=== PATIENT | female | born 1975 | race Caucasian/White ===

== ENCOUNTER 2018-08-12 19:05 | Emergency (ER) | payer MEDICAID ==
[~2018-08-12] VITALS: Wt 78.7 kg
[2018-08-12] MEDS ORDERED: SOD CHLORIDE 0.9% 1,000 ML IV STA (20:11)
[2018-08-12 22:43] VITALS: BP 116/59; PULSE 86; RESP 18
--- NOTE | 2018-08-14 06:28 | ERD ---
ER Documentation Chief Complaint Chief Complaint SOB+ flu sx x few weeks; worse since yesterday. 21 wks preg. AP no NVD HPI This is a very pleasant 42-year-old female, Sinhala-speaking, 4 para 3 roughly 21 weeks dated by last menstrual period. The patient indicates that for the past 2 weeks she has been having flulike symptoms of runny nose, productive cough, generalized weakness and tactile fever with no shaking or chills. She has not taken any medications prior to arrival. The patient does complain of mild abdominal cramping for the past several weeks. She is felt nauseous but has not experienced any nausea or diarrhea. The patient in triage stated she was short of breath however the patient indicates myself that she denies shortness of breath but does complain of mild dyspnea and cough. She denies any recent travel. She denies any cramping of her bilateral lower extremities or swelling. She denies a headache. She has no neck pain. She denies any vaginal bleeding and no frequency urgency or dysuria ROS All systems reviewed and are negative except as per history of present illness. Allergies Allergies: Coded Allergies: No Known Allergy (Unverified , 08/12/18) PMhx/Soc Medical and Surgical Hx: pt denies Medical Hx, pt denies Surgical Hx Hx Alcohol Use: No Hx Substance Use: No Hx Tobacco Use: No Smoking Status: Never smoker Physical Exam Vitals Vital Signs Date Temp Pulse Resp B/P (MAP) Pulse Ox O2 O2 Flow FiO2 Time Delivery Rate 08/12/18 98.5 86 18 116/59 98 Room Air 22:43 (78) 08/12/18 97.9 89 20 119/65 99 19:18 (83) Physical Exam Constitutional:Well-developed. Well-nourished. HEENT:Normocephalic. Atraumatic.Pupils were equal round reactive to light. Moist mucous membranes.No tonsillar exudates. Neck: No nuchal rigidity. No lymphadenopathy. No posterior cervical spine tenderness or step-offs. Respiratory: Not using accessory muscles of respiration.Lungs were clear to auscultation bilaterally. No rhonchi. No rales. Mild wheezing bilaterally. Cardiovascular: Regular rate regular rhythm.No murmurs. No rubs were appr eciated.S1, S2 normal. Distal pulses are palpable 2+ bilaterally. GI: Abdomen was gravid with no tenderness. Non Distended. No pulsatile abdominal masses or bruits. No rebound. No guarding. Bowel sounds were present and normal. Muscle skeletal: Full range of motion of both the upper and lower extremities bilaterally.Normal muscle tone.No assymetrical calf tenderness or swelling. Skin: No petechia, no purpura. No lesions on the palms or the soles of the feet. No maculopapular rash. NEURO: Patient was alert, awake, orientated x3.No facial droop. Gait observed and normal with no ataxia.Speech had regular rate and rhythm. No focal neurological deficits. Result Diagram: 08/12/18202508/12/182025 Results 24 hrs Laboratory Tests Test 08/12/18 20:26 White Blood Count 12.5 10^3/ul Red Blood Count 3.90 10^6/ul Hemoglobin 11.9 g/dl Hematocrit 34.3 % Mean Corpuscular Volume 87.9 fl Mean Corpuscular Hemoglobin 30.5 pg Mean Corpuscular Hemoglobin Concent 34.7 g/dl Red Cell Distribution Width 13.9 % Platelet Count 342 10^3/UL Mean Platelet Volume 8.9 fl Immature Granulocytes % 0.600 % Neutrophils % 76.2 % Lymphocytes % 15.6 % Monocytes % 6.0 % Eosinophils % 1.4 % Basophils % 0.2 % Nucleated Red Blood Cells % 0.0 /100WBC Immature Granulocytes # 0.070 10^3/ul Neutrophils # 9.6 10^3/ul Lymphocytes # 2.0 10^3/ul Monocytes # 0.8 10^3/ul Eosinophils # 0.2 10^3/ul Basophils # 0.0 10^3/ul Nucleated Red Blood Cells # 0.0 10^3/ul Prothrombin Time 12.9 Sec Prothrombin Time Ratio 1.0 INR International Normalized Ratio 0.96 Activated Partial Thromboplast Time 27.4 Sec Urine Color COLORLESS Urine Clarity CLEAR Urine pH 8.0 Urine Specific [place] 1.008 Urine Ketones NEGATIVE mg/dL Urine Nitrite NEGATIVE mg/dL Urine Bilirubin NEGATIVE mg/dL Urine Urobilinogen NEGATIVE mg/dL Urine Leukocyte Esterase NEGATIVE [place] Urine Hemoglobin NEGATIVE mg/dL Urine Glucose NEGATIVE mg/dL Urine Total Protein NEGATIVE mg/dl Sodium Level 139 mmol/L Potassium Level 3.9 mmol/L Chloride Level 109 mmol/L Carbon Dioxide Level 22 mmol/L Anion Gap 8 Blood Urea Nitrogen 9 mg/dl Creatinine 0.46 mg/dl Est Glomerular Filtrat Rate mL/min > 60 mL/min Glucose Level 95 mg/dl Calcium Level 8.9 mg/dl Total Bilirubin 0.3 mg/dl Direct Bilirubin 0.00 mg/dl Indirect Bilirubin 0.3 mg/dl Aspartate Amino Transf (AST/SGOT) 24 IU/L Alanine Aminotransferase (ALT/SGPT) 22 IU/L Alkaline Phosphatase 78 IU/L B-Type Natriuretic Peptide 35 PG/ML Total Protein 7.4 g/dl Albumin 4.0 g/dl Globulin 3.40 g/dl Albumin/Globulin Ratio 1.17 Beta HCG, Quantitative 88245.0 mIU/ml Current Medications Medications Dose Sig/Pérez Start Time Status Last (Trade) Ordered Route PRN Stop Time Admin Dose Reason Admin Sodium 1,000 ml @ Q1H STAT 08/12/18 DC 08/12/18 Chloride 1,000 mls/hr IV 20:11 21:38 08/12/18 21:10 Procedures/MDM The patient presented to the emergency department with dyspnea 21 weeks . My differential diagnosis included but was not limited to upper airway obstruction, CHF, pulmonary embolism, cardiac ischemia, pneumonia, pneumothorax, anemia, drug overdose, pulmonary edema, COPD or asthma. The patient had IV ac cess established by nursing staff. She was given a liter bolus of normal saline. Patient did have mild wheezing but the patient was refusing a nebulizer treatment. The patient did states she wanted a chest radiograph and her abdomen was shielded. This was reviewed by myself the radiologist and there is no evidence of pneumonia or infiltrates. The patient's wheezing resolved however had not received any medications in the emergency department. I indicated to the patient that this was likely a viral etiology my clinical suspicion was low for pulmonary embolism. There is mild leukocytosis expected with her . There is no severe electrolyte abnormalities. The patient also been complaining of mild abdominal cramping and therefore I did feel is necessary to obtain an ultrasound of the pelvis which was reviewed by the radiologist and indicated following: Single live intrauterine gestation of 21 weeks 1 day by ultrasound criteria. The patient was offered to go to labor and delivery daily for monitoring however the patient stated she felt comfortable being discharged home. Her main concern was pneumonia and after I indicated the patient I did not feel her symptoms were bacterial etiology she felt comfortable being discharged home and following up with her [facility]. She was instructed that she can return to the emergency department anytime if her symptoms are to worsen. The patient was discharged home in fair condition. They were instructed to return to the [facility] department at any time if there was any worsening of their condition. The patient stated they would follow up with their PCP in the next 24-48 hours to initiate a suitable medication regimen under the care of their PCP as well as to allow their PCP to monitor any drug reactions. The patient was discharged home with prescriptions after they gave informed consent to the new medication. They were also fully informed by myself on the adverse effects and adverse drug interactions in order to provide adequate safeguards to prevent possible adverse reactions to medications. Departure Diagnosis: Primary Impression: Upper respiratory infection URI type: unspecified URI Qualified Codes: J06.9 - Acute upper respiratory infection, unspecified Condition: Fair Patient Instructions: : Body Changes, Coping with Shortness of Breath: Controlling Stress Referrals: EL RAMIREZ MARIEE (PCP) DIRK GUILLAUME MD Aug 14, 2018 06:28
== END 2018-08-12 22:44 | disposition home or self-care (01) ==
LOC: FTE 19:05
DX: O99.512 Diseases of the respiratory system complicating pregnancy, second trimester (principal); J06.9 Acute upper respiratory infection, unspecified; R10.9 Unspecified abdominal pain; Z3A.21 21 weeks gestation of pregnancy
CPT/HCPCS: 36415; 71045; 76805; 80053; 81003; 83880; 84702; 85025; 85610; 85730; 86900; 86901; 93005; 96360; J7030; Z7502